=== PATIENT | female | born 1965 | race Caucasian/White ===

== ENCOUNTER 2021-05-13 21:58 | Observation (INO) ==
[2021-05-13 23:32] LABS: Bilirubin,Urine Negative (Negative); Blood,Urine Moderate (Negative); Clarity,Urine Ex.Turbid (Clear); Color,Urine Yellow (Yellow); Glucose,Urine (UA) Normal (Normal); Ketones,Urine Negative (Negative); Leukocyte Esterase,Urine Large (Negative); Nitrite,Urine Negative (Negative); PH,Urine 6.5 pH Units (5.0-8.0); Protein,Urine 100 mg/dL (Neg-Trace); Specific Gravity,Urine 1.007 (1.010-1.025); Urobilinogen,Urine Normal (Normal); WBC,Urine TNTC per hpf (0-3)
[2021-05-14 00:08] LABS: Basophils # 0.1 K/mcL (0.0-0.2); Basophils % 0.5 %; Eosinophils # 0.1 K/mcL (0.0-0.6); Hematocrit 37.1 % (35.3-44.9); Immature Granulocytes % 0.9 % (0-4); Lymphocytes # 1.3 K/mcL (0.6-4.6); Lymphocytes % 13.8 %; Mean Corpuscular HGB Conc 32.3 g/dL (31.6-35.5); Mean Corpuscular Hemoglobin 29.1 pg (28.0-33.3); Mean Corpuscular Volume 89.8 fL (83.0-100.0); Mean Platelet Volume 10.6 fL (9.4-12.4); Monocytes % 10.6 %; Neutrophils # 6.7 K/mcL (1.6-8.9); Platelet Count 313 K/mcL (140-400); Red Blood Count 4.13 M/mcL (3.82-4.97); Red Cell Distribution Width 13.7 % (11.5-14.5); Segmented Neutrophils % 73.2 %; White Blood Count 9.2 K/mcL (4.3-11.1)
[2021-05-14 00:15] LABS: Albumin 3.8 g/dL (3.5-5.7); Albumin/Globulin Ratio 1.1 (1.1-2.2); Bilirubin,Direct 0.1 mg/dL (0.0-0.2); Bilirubin,Indirect 0.4 mg/dL (0.0-1.0); Bilirubin,Total 0.5 mg/dL (0.3-1.0); Calcium 9.1 mg/dL (8.6-10.3); Globulin 3.5 g/dL (2.4-3.5); Potassium 5.3 mEq/L (3.5-5.1); Total Protein 7.3 g/dL (6.4-8.9)
[2021-05-14] MEDS ORDERED: cefTRIAXone 1,000 MG in 0.9 % Sodium Chloride Mini Bag 100 ML IVPB ONE (01:29)
[2021-05-14] MEDS ORDERED: 0.9 % Sodium Chloride 1,000 ML IVC ONE (02:16)
[2021-05-14] MEDS ORDERED: Naloxone 0.4 MG/ML INJ IVP PRN (04:57)
[2021-05-14] MEDS ORDERED: Acetaminophen 325 MG TABLET PO PRN (04:57)
[2021-05-14] MEDS ORDERED: Famotidine 20 MG/2 ML VIAL IVP SCH (06:00)
[2021-05-14 06:35] LABS: Calcium 8.5 mg/dL (8.6-10.3); Potassium 4.4 mEq/L (3.5-5.1)
[2021-05-14] MEDS: 0.9 % Sodium Chloride 1,000 ML IVC SCH ×2 (12:55→23:05)
[2021-05-14] MEDS: hydrOXYzine pamoate 25 MG CAPSULE PO SCH (17:16)
[2021-05-14] MEDS: Ammonium Lactate 30 APPL/225 GM BOTTLE TP SCH (20:47)
[2021-05-14] MEDS ORDERED: Cyanocobalamin (B-12) 1,000 MCG TABLET PO SCH (21:00)
[2021-05-14] MEDS: Colestipol Hcl [Colestid] 1 GM Tablet PO SCH (21:11)
[2021-05-14] MEDS ORDERED: cefTRIAXone 1,000 MG in 0.9 % Sodium Chloride Mini Bag 100 ML IVPB SCH (22:00)
[2021-05-15] MEDS: hydrOXYzine pamoate 25 MG CAPSULE PO SCH ×2 (02:01→09:15)
[2021-05-15 06:41] LABS: Hematocrit 32.8 % (35.3-44.9); Mean Corpuscular HGB Conc 31.4 g/dL (31.6-35.5); Mean Corpuscular Hemoglobin 28.9 pg (28.0-33.3); Mean Corpuscular Volume 91.9 fL (83.0-100.0); Mean Platelet Volume 10.7 fL (9.4-12.4); Platelet Count 223 K/mcL (140-400); Red Blood Count 3.57 M/mcL (3.82-4.97); Red Cell Distribution Width 14.2 % (11.5-14.5)
[2021-05-15 06:49] LABS: Hemoglobin 10.3 g/dL (11.5-15.4); White Blood Count 3.2 K/mcL (4.3-11.1)
[2021-05-15 06:59] LABS: Calcium 8.1 mg/dL (8.6-10.3); Chol/HDL Ratio 3.5 (0-4.9); Magnesium 1.7 mg/dL (1.6-2.6); Potassium 4.3 mEq/L (3.5-5.1)
[2021-05-15 07:03] LABS: % Iron Saturation 20 % (15-50); Iron 62 mcg/dL (50-170); Transferrin 221 mg/dL (203-362)
[2021-05-15 07:28] VITALS: TEMP 97.6; O2SAT 99
[2021-05-15] MEDS ORDERED: Loratadine 10 MG TABLET PO SCH (09:00)
[2021-05-15] MEDS ORDERED: Famotidine 20 MG/2 ML VIAL IVP SCH (09:00)
[2021-05-15] MEDS: Ammonium Lactate 30 APPL/225 GM BOTTLE TP SCH (09:16)
[2021-05-15] MEDS: Colestipol Hcl [Colestid] 1 GM Tablet PO SCH (09:17)
[2021-05-15 10:40] LABS: Estimated Average Glucose 108 mg/dl; Hemoglobin A1C 5.4 %
[2021-05-15 11:37] LABS: Ferritin 42 ng/mL (10-120)
[2021-05-15 11:43] LABS: Folate 15.2 ng/mL (3.0-16.0)
[2021-05-15 11:57] VITALS: BP 136/89; PULSE 73
[2021-05-16] MEDS ORDERED: Famotidine 20 MG TABLET PO SCH (09:00)
== END 2021-05-15 14:52 | disposition home health service (06) ==
LOC: 2ANU 21:58 → EMEROOARM 21:58 → SUATTDRO 05-14 03:04 → 2ANU 05-14 04:30
PROVIDERS: ADMIT Student in an Organized Health Care Education/Training Program; ATTEND Family Medicine

== ENCOUNTER 2021-05-30 18:26 | Inpatient (IN) ==
[2021-05-30] MEDS ORDERED: Morphine Sulfate 2 MG/ML SYRINGE IVP ONE (18:40)
[2021-05-30] MEDS ORDERED: Ondansetron 4 MG/2 ML VIAL IVP ONE (18:40)
[2021-05-30] MEDS ORDERED: 0.9 % Sodium Chloride 1,000 ML IVC ONE (18:40)
[2021-05-30 19:06] LABS: Basophils # 0.1 K/mcL (0.0-0.2); Basophils % 0.5 %; Eosinophils # 0.1 K/mcL (0.0-0.6); Eosinophils % 0.3 %; Hematocrit 37.9 % (35.3-44.9); Immature Granulocytes % 0.4 % (0-4); Mean Corpuscular HGB Conc 31.7 g/dL (31.6-35.5); Mean Corpuscular Hemoglobin 28.9 pg (28.0-33.3); Mean Corpuscular Volume 91.3 fL (83.0-100.0); Monocytes # 1.2 K/mcL (0.0-1.3); Monocytes % 8.1 %; Neutrophils # 12.2 K/mcL (1.6-8.9); Platelet Count 417 K/mcL (140-400); Red Blood Count 4.15 M/mcL (3.82-4.97); Red Cell Distribution Width 14.6 % (11.5-14.5); Segmented Neutrophils % 83.7 %; White Blood Count 14.6 K/mcL (4.3-11.1)
[2021-05-30 19:27] LABS: Alanine Aminotransferase 9 Units/L (7-52); Albumin 3.5 g/dL (3.5-5.7); Albumin/Globulin Ratio 0.9 (1.1-2.2); Alkaline Phosphatase 102 Units/L (34-104); Aspartate Amino Transferase 10 Units/L (13-39); BUN/Creatinine Ratio 11 (6-26); Bilirubin,Indirect 0.2 mg/dL (0.0-1.0); Bilirubin,Total 0.2 mg/dL (0.3-1.0); Blood Urea Nitrogen 23 mg/dL (6-20); Carbon Dioxide 19 mEq/L (23-29); Chloride 111 mEq/L (98-107); Globulin 3.7 g/dL (2.4-3.5); Glucose 158 mg/dL (70-105); Lipase 25 Units/L (11-82); Osmolality,Calculated 297 (280-300); Potassium 3.7 mEq/L (3.5-5.1); Sodium 140 mEq/L (136-145); Total Protein 7.2 g/dL (6.4-8.9); Troponin I < 0.03 ng/mL (< 0.04); eGFR For African Americans 31 (> 60); eGFR For Non-African Americans 26 (> 60)
[2021-05-30] MEDS ORDERED: cefTRIAXone 1,000 MG in 0.9 % Sodium Chloride Mini Bag 100 ML IVPB ONE (20:19)
[2021-05-30 21:05] LABS: Bilirubin,Urine Negative (Negative); Blood,Urine Small (Negative); Clarity,Urine Turbid (Clear); Color,Urine Yellow (Yellow); Glucose,Urine (UA) Normal (Normal); Ketones,Urine Negative (Negative); Leukocyte Esterase,Urine Large (Negative); Nitrite,Urine Negative (Negative); PH,Urine 6.5 pH Units (5.0-8.0); Protein,Urine >=300 mg/dL (Neg-Trace); Specific Gravity,Urine 1.016 (1.010-1.025); Urobilinogen,Urine Normal (Normal)
[2021-05-30] MEDS ORDERED: *HR* FentaNYL (PF) 100 MCG/2 ML VIAL IVP ONE (21:06)
[2021-05-30 21:07] LABS: Bacteria,Urine Present per hpf (None-Few); WBC,Urine Present per hpf (0-3)
[2021-05-31] MEDS ORDERED: *HR* FentaNYL (PF) 100 MCG/2 ML VIAL IVP ONE (00:37)
[2021-05-31] MEDS ORDERED: 0.9 % Sodium Chloride 1,000 ML IVC SCH (01:45)
[2021-05-31] MEDS ORDERED: Naloxone 0.4 MG/ML INJ IVP PRN (01:45)
[2021-05-31] MEDS ORDERED: Ondansetron 4 MG/2 ML VIAL IVP PRN (01:51)
[2021-05-31] MEDS: hydrOXYzine pamoate 25 MG CAPSULE PO SCH ×3 (05:03→20:04)
[2021-05-31] MEDS: *HR* Heparin 5,000 UNIT/ML VIAL SQ SCH ×3 (05:04→20:04)
[2021-05-31 09:13] LABS: Hematocrit 32.3 % (35.3-44.9); Hemoglobin 10.5 g/dL (11.5-15.4); Mean Corpuscular HGB Conc 32.5 g/dL (31.6-35.5); Mean Corpuscular Hemoglobin 29.4 pg (28.0-33.3); Mean Corpuscular Volume 90.5 fL (83.0-100.0); Mean Platelet Volume 10.1 fL (9.4-12.4); Platelet Count 341 K/mcL (140-400); Red Blood Count 3.57 M/mcL (3.82-4.97); Red Cell Distribution Width 14.6 % (11.5-14.5); White Blood Count 8.6 K/mcL (4.3-11.1)
[2021-05-31] MEDS: (Ipratropium Bromide 15 ML Spray) NS SCH ×2 (09:28→20:05)
[2021-05-31] MEDS: (Colestipol Hcl [Colestid] 1 GM Tablet) PO SCH ×2 (09:28→20:05)
[2021-05-31] MEDS: lisinopriL 5 MG TABLET PO SCH (09:28)
[2021-05-31] MEDS: Loratadine 10 MG TABLET PO SCH (09:28)
[2021-05-31] MEDS: Ammonium Lactate 30 APPL/225 GM BOTTLE TP SCH ×2 (09:35→20:05)
[2021-05-31 09:36] LABS: Potassium 4.5 mEq/L (3.5-5.1)
[2021-05-31 11:22] LABS: Calcium 8.4 mg/dL (8.6-10.3)
[2021-05-31] MEDS: Acetaminophen 325 MG TABLET PO PRN (17:37)
[2021-05-31] MEDS: Cyanocobalamin (B-12) 1,000 MCG TABLET PO SCH (20:04)
[2021-06-01 02:24] LABS: Hematocrit 31.8 % (35.3-44.9); Hemoglobin 10.1 g/dL (11.5-15.4); Mean Corpuscular HGB Conc 31.8 g/dL (31.6-35.5); Mean Corpuscular Hemoglobin 29.1 pg (28.0-33.3); Mean Corpuscular Volume 91.6 fL (83.0-100.0); Mean Platelet Volume 10.9 fL (9.4-12.4); Platelet Count 275 K/mcL (140-400); Red Blood Count 3.47 M/mcL (3.82-4.97); Red Cell Distribution Width 14.8 % (11.5-14.5); White Blood Count 6.7 K/mcL (4.3-11.1)
[2021-06-01] MEDS: hydrOXYzine pamoate 25 MG CAPSULE PO SCH ×3 (04:28→20:35)
[2021-06-01] MEDS: *HR* Heparin 5,000 UNIT/ML VIAL SQ SCH ×3 (05:01→20:36)
[2021-06-01] MEDS: (Ipratropium Bromide 15 ML Spray) NS SCH ×2 (07:02→20:19)
[2021-06-01] MEDS: (Colestipol Hcl [Colestid] 1 GM Tablet) PO SCH ×2 (07:02→20:19)
[2021-06-01 08:43] LABS: Calcium 8.7 mg/dL (8.6-10.3); Potassium 4.3 mEq/L (3.5-5.1)
[2021-06-01] MEDS: lisinopriL 5 MG TABLET PO SCH (09:06)
[2021-06-01] MEDS: Loratadine 10 MG TABLET PO SCH (09:06)
[2021-06-01] MEDS: Acetaminophen 325 MG TABLET PO PRN ×2 (09:11→20:35)
[2021-06-01] MEDS: Ammonium Lactate 30 APPL/225 GM BOTTLE TP SCH ×2 (09:18→20:35)
[2021-06-01] MEDS ORDERED: 0.9 % Sodium Chloride 1,000 ML IVC SCH (12:15)
[2021-06-01] MEDS: cefTRIAXone 1,000 MG in Water for inj. (sterile) 10 ML IVP SCH (12:26)
[2021-06-01] MEDS: Cyanocobalamin (B-12) 1,000 MCG TABLET PO SCH (20:35)
[2021-06-02] MEDS: hydrOXYzine pamoate 25 MG CAPSULE PO SCH ×3 (05:20→19:50)
[2021-06-02] MEDS: Acetaminophen 325 MG TABLET PO PRN ×2 (05:20→19:50)
[2021-06-02] MEDS: *HR* Heparin 5,000 UNIT/ML VIAL SQ SCH ×3 (05:21→19:50)
[2021-06-02 06:16] LABS: Hematocrit 33.8 % (35.3-44.9); Hemoglobin 10.2 g/dL (11.5-15.4); Mean Corpuscular HGB Conc 30.2 g/dL (31.6-35.5); Mean Corpuscular Hemoglobin 28.7 pg (28.0-33.3); Mean Corpuscular Volume 95.2 fL (83.0-100.0); Mean Platelet Volume 10.3 fL (9.4-12.4); Platelet Count 238 K/mcL (140-400); Red Blood Count 3.55 M/mcL (3.82-4.97); Red Cell Distribution Width 15.1 % (11.5-14.5); White Blood Count 4.1 K/mcL (4.3-11.1)
[2021-06-02 06:53] LABS: Calcium 7.9 mg/dL (8.6-10.3); Potassium 4.1 mEq/L (3.5-5.1)
[2021-06-02] MEDS: (Ipratropium Bromide 15 ML Spray) NS SCH ×2 (06:58→19:51)
[2021-06-02] MEDS: (Colestipol Hcl [Colestid] 1 GM Tablet) PO SCH ×2 (06:58→19:51)
[2021-06-02] MEDS: Loratadine 10 MG TABLET PO SCH (07:12)
[2021-06-02] MEDS: lisinopriL 5 MG TABLET PO SCH (07:12)
[2021-06-02] MEDS: cefTRIAXone 1,000 MG in Water for inj. (sterile) 10 ML IVP SCH (07:12)
[2021-06-02] MEDS: Ammonium Lactate 30 APPL/225 GM BOTTLE TP SCH ×2 (07:13→19:51)
[2021-06-02] MEDS: Cyanocobalamin (B-12) 1,000 MCG TABLET PO SCH (19:50)
[2021-06-03] MEDS: hydrOXYzine pamoate 25 MG CAPSULE PO SCH ×3 (03:21→19:51)
[2021-06-03] MEDS: *HR* Heparin 5,000 UNIT/ML VIAL SQ SCH ×3 (04:49→21:09)
[2021-06-03 06:02] LABS: Hematocrit 33.1 % (35.3-44.9); Hemoglobin 10.4 g/dL (11.5-15.4); Mean Corpuscular HGB Conc 31.4 g/dL (31.6-35.5); Mean Corpuscular Hemoglobin 29.3 pg (28.0-33.3); Mean Corpuscular Volume 93.2 fL (83.0-100.0); Mean Platelet Volume 10.5 fL (9.4-12.4); Platelet Count 273 K/mcL (140-400); Red Blood Count 3.55 M/mcL (3.82-4.97); Red Cell Distribution Width 15.3 % (11.5-14.5); White Blood Count 4.6 K/mcL (4.3-11.1)
[2021-06-03] MEDS: lisinopriL 5 MG TABLET PO SCH (07:54)
[2021-06-03] MEDS: Loratadine 10 MG TABLET PO SCH (07:54)
[2021-06-03] MEDS: Ammonium Lactate 30 APPL/225 GM BOTTLE TP SCH ×2 (08:15→19:51)
[2021-06-03] MEDS: (Ipratropium Bromide 15 ML Spray) NS SCH ×2 (08:17→19:52)
[2021-06-03] MEDS: (Colestipol Hcl [Colestid] 1 GM Tablet) PO SCH ×2 (08:17→19:52)
[2021-06-03 10:32] LABS: Calcium 7.9 mg/dL (8.6-10.3); Potassium 5.1 mEq/L (3.5-5.1)
[2021-06-03] MEDS: 0.9 % Sodium Chloride 1,000 ML IVC SCH ×2 (12:11→21:36)
[2021-06-03] MEDS: Cyanocobalamin (B-12) 1,000 MCG TABLET PO SCH (19:51)
[2021-06-04] MEDS: hydrOXYzine pamoate 25 MG CAPSULE PO SCH ×2 (03:58→12:11)
[2021-06-04] MEDS: *HR* Heparin 5,000 UNIT/ML VIAL SQ SCH (05:14)
[2021-06-04] MEDS: lisinopriL 5 MG TABLET PO SCH (07:32)
[2021-06-04] MEDS: Loratadine 10 MG TABLET PO SCH (07:32)
[2021-06-04] MEDS: Ammonium Lactate 30 APPL/225 GM BOTTLE TP SCH (07:36)
[2021-06-04] MEDS: (Colestipol Hcl [Colestid] 1 GM Tablet) PO SCH (07:44)
[2021-06-04] MEDS: (Ipratropium Bromide 15 ML Spray) NS SCH (07:44)
[2021-06-04 11:25] VITALS: BP 151/85; PULSE 71; TEMP 98; O2SAT 100
== END 2021-06-04 14:34 | disposition home health service (06) | DRG 872 ==
LOC: 3BNU 18:26 → EMEROOARM 18:26 → SUATTDRO 05-31 00:48 → 3BNU 05-31 02:07 → SUATTDRO 06-01 16:13
PROVIDERS: ADMIT Student in an Organized Health Care Education/Training Program; ATTEND Registered Nurse

== ENCOUNTER 2021-08-10 17:35 | Inpatient (IN) ==
[2021-08-10] MEDS ORDERED: Ondansetron 4 MG/2 ML VIAL IVP ONE ×2 (17:43→20:17)
[2021-08-10] MEDS ORDERED: 0.9 % Sodium Chloride 500 ML IVC ONE (17:43)
[2021-08-10] MEDS ORDERED: *HR* FentaNYL (PF) 100 MCG/2 ML VIAL IVP ONE ×2 (17:43→19:55)
[2021-08-10 18:41] LABS: Basophils # 0.1 K/mcL (0.0-0.2); Basophils % 0.8 %; Eosinophils # 0.2 K/mcL (0.0-0.6); Hematocrit 40.9 % (35.3-44.9); Hemoglobin 13.2 g/dL (11.5-15.4); Immature Granulocytes % 0.3 % (0-4); Mean Corpuscular HGB Conc 32.3 g/dL (31.6-35.5); Mean Corpuscular Hemoglobin 29.4 pg (28.0-33.3); Mean Corpuscular Volume 91.1 fL (83.0-100.0); Mean Platelet Volume 10.5 fL (9.4-12.4); Monocytes # 0.5 K/mcL (0.0-1.3); Monocytes % 6.9 %; Neutrophils # 5.9 K/mcL (1.6-8.9); Platelet Count 307 K/mcL (140-400); Red Blood Count 4.49 M/mcL (3.82-4.97); Red Cell Distribution Width 14.9 % (11.5-14.5); White Blood Count 7.6 K/mcL (4.3-11.1)
[2021-08-10 18:42] LABS: Prothrombin Time 11.1 Seconds (9.4-12.1)
[2021-08-10 18:44] LABS: Activated Partial Thrombo Time 35.4 Seconds (26.0-36.0)
[2021-08-10 18:56] LABS: Alanine Aminotransferase 14 Units/L (7-52); Albumin 3.7 g/dL (3.5-5.7); Alkaline Phosphatase 112 Units/L (34-104); Aspartate Amino Transferase 15 Units/L (13-39); BUN/Creatinine Ratio 19 (6-26); Bilirubin,Direct 0.1 mg/dL (0.0-0.2); Bilirubin,Indirect 0.2 mg/dL (0.0-1.0); Bilirubin,Total 0.3 mg/dL (0.3-1.0); Blood Urea Nitrogen 27 mg/dL (6-20); Calcium 9.2 mg/dL (8.6-10.3); Carbon Dioxide 25 mEq/L (23-29); Chloride 105 mEq/L (98-107); Globulin 3.6 g/dL (2.4-3.5); Glucose 115 mg/dL (70-105); Lipase 28 Units/L (11-82); Osmolality,Calculated 296 (280-300); Potassium 4.1 mEq/L (3.5-5.1); Sodium 140 mEq/L (136-145); Total Protein 7.3 g/dL (6.4-8.9); Troponin I < 0.03 ng/mL (< 0.04); eGFR For African Americans 46 (> 60); eGFR For Non-African Americans 38 (> 60)
[2021-08-10 18:59] LABS: Bacteria,Urine Few per hpf (None-Few); Bilirubin,Urine Negative (Negative); Blood,Urine Negative (Negative); Clarity,Urine Turbid (Clear); Color,Urine Light-Yellow (Yellow); Glucose,Urine (UA) Normal (Normal); Ketones,Urine Negative (Negative); Leukocyte Esterase,Urine Large (Negative); Mucus,Urine Few per lpf (None-Few); Nitrite,Urine Negative (Negative); Protein,Urine Trace mg/dL (Neg-Trace); RBC,Urine 0-3 per hpf (0-3); Specific Gravity,Urine 1.015 (1.010-1.025); Urobilinogen,Urine Normal (Normal); WBC,Urine TNTC per hpf (0-3)
[2021-08-10] MEDS ORDERED: Ondansetron 4 MG/2 ML VIAL ONE (20:12)
[2021-08-10] MEDS ORDERED: Naloxone 0.4 MG/ML INJ IVP PRN (20:25)
[2021-08-10] MEDS ORDERED: Melatonin 3 MG TABLET PO PRN (20:25)
[2021-08-10] MEDS ORDERED: 0.9 % Sodium Chloride 1,000 ML IVC SCH (20:30)
[2021-08-10] MEDS ORDERED: Tetracaine/Benzocaine/Butamben 1 SPRAY AEROSOL ONE (20:41)
[2021-08-10] MEDS ORDERED: Tetracaine/Benzocaine/Butamben 1 SPRAY AEROSOL MM ONE (20:44)
[2021-08-10] MEDS ORDERED: Acetaminophen IV 1,000 MG/100 ML BAG IVPB ONE (23:08)
[2021-08-11 03:37] LABS: Hematocrit 41.2 % (35.3-44.9); Hemoglobin 13.3 g/dL (11.5-15.4); Mean Corpuscular HGB Conc 32.3 g/dL (31.6-35.5); Mean Corpuscular Hemoglobin 28.9 pg (28.0-33.3); Mean Corpuscular Volume 89.4 fL (83.0-100.0); Mean Platelet Volume 11.5 fL (9.4-12.4); Platelet Count 268 K/mcL (140-400); Red Blood Count 4.61 M/mcL (3.82-4.97); White Blood Count 10.6 K/mcL (4.3-11.1)
[2021-08-11 03:46] LABS: Calcium 8.8 mg/dL (8.6-10.3); Potassium 4.4 mEq/L (3.5-5.1)
[2021-08-11] MEDS: *HR* Heparin 5,000 UNIT/ML VIAL SQ SCH ×2 (05:27→17:32)
[2021-08-11] MEDS ORDERED: Ringers Solution, Lactated 1,000 ML IVC SCH (14:00)
[2021-08-11] MEDS: hydrOXYzine pamoate 25 MG CAPSULE PO SCH ×2 (16:04→23:20)
[2021-08-11] MEDS ORDERED: Ondansetron ODT 4 MG TAB.RAPDIS SL ONE (23:00)
[2021-08-12] MEDS ORDERED: *HR* Labetalol 20 MG/4 ML SYRINGE IVP PRN (00:41)
[2021-08-12] MEDS: *HR* Heparin 5,000 UNIT/ML VIAL SQ SCH ×2 (05:25→18:15)
[2021-08-12] MEDS: hydrOXYzine pamoate 25 MG CAPSULE PO SCH ×3 (08:25→23:05)
[2021-08-12] MEDS ORDERED: Ringers Solution, Lactated 1,000 ML IVC SCH (11:45)
[2021-08-12] MEDS: amLODIPine 5 MG TABLET PO SCH (11:57)
[2021-08-12] MEDS: Ondansetron 4 MG/2 ML VIAL IVP PRN ×2 (12:55→21:37)
[2021-08-13 02:31] LABS: Hematocrit 36.5 % (35.3-44.9); Hemoglobin 11.8 g/dL (11.5-15.4); Mean Corpuscular HGB Conc 32.3 g/dL (31.6-35.5); Mean Corpuscular Hemoglobin 30.7 pg (28.0-33.3); Mean Corpuscular Volume 95.1 fL (83.0-100.0); Mean Platelet Volume 10.2 fL (9.4-12.4); Platelet Count 234 K/mcL (140-400); Red Blood Count 3.84 M/mcL (3.82-4.97); Red Cell Distribution Width 15.4 % (11.5-14.5)
[2021-08-13 02:33] LABS: White Blood Count 3.9 K/mcL (4.3-11.1)
[2021-08-13 02:45] LABS: Potassium 3.9 mEq/L (3.5-5.1)
[2021-08-13] MEDS: *HR* Heparin 5,000 UNIT/ML VIAL SQ SCH ×2 (05:15→17:31)
[2021-08-13] MEDS: hydrOXYzine pamoate 25 MG CAPSULE PO SCH ×3 (08:16→23:46)
[2021-08-13] MEDS: amLODIPine 5 MG TABLET PO SCH (08:16)
[2021-08-13] MEDS: Ondansetron 4 MG/2 ML VIAL IVP PRN ×2 (13:30→23:45)
[2021-08-14] MEDS: *HR* Heparin 5,000 UNIT/ML VIAL SQ SCH ×2 (05:28→17:47)
[2021-08-14] MEDS: hydrOXYzine pamoate 25 MG CAPSULE PO SCH ×2 (09:34→15:14)
[2021-08-14] MEDS: amLODIPine 5 MG TABLET PO SCH (09:34)
[2021-08-14] MEDS: Ondansetron 4 MG/2 ML VIAL IVP PRN ×2 (09:37→17:47)
[2021-08-15] MEDS: hydrOXYzine pamoate 25 MG CAPSULE PO SCH ×2 (00:07→08:29)
[2021-08-15] MEDS: *HR* Heparin 5,000 UNIT/ML VIAL SQ SCH (05:18)
[2021-08-15 06:31] VITALS: BP 152/55; PULSE 80; TEMP 98.2; O2SAT 94
[2021-08-15] MEDS: amLODIPine 5 MG TABLET PO SCH (08:29)
== END 2021-08-15 13:15 | disposition home health service (06) | DRG 389 ==
LOC: EMEROOARM 17:35 → 3ANU 17:35 → SUATTDRO 20:36 → 3ANU 21:29
PROVIDERS: ADMIT Internal Medicine; ATTEND Internal Medicine